=== PATIENT | female | born 1980 | race Caucasian/White ===

== ENCOUNTER 2017-01-30 02:11 | Emergency (ER) | payer MEDICAID ==
[2017-01-30 02:11] VITALS: BMI 38.9
[2017-01-30 02:19] VITALS: BP 108/71; PULSE 90; RESP 18; TEMP 97.7; O2SAT 98
--- NOTE | 2017-01-30 03:06 | ED PDOC ---
HPI: Psych/Substance Abuse Time Seen by Provider: 01/30/17 02:14 Chief Complaint (Nursing): Alcohol Ingestion Chief Complaint (Provider): alcohol intoxication History Per: Patient History/Exam Limitations: intoxication Onset/Duration Of Symptoms: Mins Current Symptoms Are (Timing): Still Present Additional Complaint(s): 36yo female with PMHx including bipolar disorder presents to the ED for eval of alcohol intoxication. Patient was found sleeping next to a garage in [place] that was not hers. Admits to drinking alcohol and attempting to walk home to [place] but could not make it. Patient initially uncooperative but able to be redirected. Denies head injury, SI, HI. Past Medical History Reviewed: Historical Data, Nursing Documentation, Vital Signs Vital Signs: Last Vital Signs Temp 97.7 F 01/30/17 02:17 Pulse 90 01/30/17 02:17 Resp 18 01/30/17 02:17 BP 108/71 01/30/17 02:17 Pulse Ox 98 01/30/17 02:17 - Medical History PMH: Bipolar Disorder, Depression - Surgical History Surgical History: No Surg Hx - Family History Family History: States: Unknown Family Hx - Home Medications Home Medications: Ambulatory Orders Medication Instructions Recorded Fluoxetine HCl [Fluoxetine] 20 mg PO DAILY 06/29/16 Hydrocodone/Acetaminophen [Rhome 5 - 325 mg PO Q6 PRN 06/29/16 7.5-325 Tablet] Lamotrigine [Lamictal Xr] 100 mg PO HS 06/29/16 Omeprazole 20 mg PO DAILY 06/29/16 Quetiapine Fumarate [Seroquel] 25 mg PO HS 06/29/16 Topiramate [Topamax] 100 mg PO HS 06/29/16 - Allergies Allergies/Adverse Reactions: Allergies Allergy/AdvReac Type Severity Reaction Status Date / Time hydrocodone Allergy RASH Verified 01/30/17 02:19 Review of Systems Review Of Systems: ROS cannot be obtained secondary to pt's inabilty to answer questions. (due to intoxication) Physical Exam - Reviewed Nursing Documentation Reviewed: Yes Vital Signs Reviewed: Yes - Physical Exam Appears: Positive for: No Acute Distress (poor hygiene, no signs of gross trauma ) Head Exam: Positive for: ATRAUMATIC, NORMAL INSPECTION, NORMOCEPHALIC Skin: Positive for: Normal Color, Warm, Dry Eye Exam: Positive for: Normal appearance, EOMI, PERRL ENT: Positive for: Normal ENT Inspection Neck: Positive for: Normal, Painless ROM, Supple Cardiovascular/Chest: Positive for: Regular Rate, Rhythm. Negative for: Murmur , Tachycardia Respiratory: Positive for: Normal Breath Sounds. Negative for: Wheezing, Respiratory Distress Gastrointestinal/Abdominal: Positive for: Normal Exam, Soft. Negative for: Tenderness Back: Positive for: Normal Inspection Extremity: Positive for: Normal ROM. Negative for: Tenderness, Deformity, Swelling Neurologic/Psych: Positive for: Alert, Oriented, Gait (unsteady ), Other ( speech slurred ) - ECG O2 Sat by Pulse Oximetry: 98 Pulse Ox Interpretation: Normal (RA) Medical Decision Making Medical Decision Makin: Will monitor in ED until sobriety. 0330: sleeping comfortably. No distress. 0615: awake, alert, ambulating steady gait. DC from ED. Scribe Attestation: Documented by Brian Garcia acting as a scribe for Darryl Potts III, DO. Provider Scribe Attestation: All medical record entries made by the Scribe were at my direction and personally dictated by me. I have reviewed the chart and agree that the record accurately reflects my personal performance of the history, physical exam, medical decision making, and the department course for this patient. I have also personally directed, reviewed, and agree with the discharge instructions and disposition. Disposition - Clinical Impression Clinical Impression: Alcohol abuse with intoxication - Patient ED Disposition Is Patient to be Admitted: No Counseled Patient/Family Regarding: Studies Performed, Diagnosis, Need For Followup, Rx Given - Disposition Referrals: Alcoholics Anonymous [Outside] Disposition: Routine/Home Disposition Time: 06:10 Condition: STABLE Instructions: Alcohol Intoxication (ED)
== END 2017-01-30 06:45 | disposition home or self-care (01) ==
LOC: H.ER 02:11
DX: F10.129 Alcohol abuse with intoxication, unspecified (principal); Z86.59 Personal history of other mental and behavioral disorders